=== PATIENT | female | born 1965 | race Two or more races ===

== ENCOUNTER 2022-10-06 23:04 | Inpatient (IN) | payer OTHER ==
[~2022-10-06] VITALS: Ht 165.1 cm; Wt 59.0 kg
--- NOTE | 2022-10-06 23:36 | NUR ---
PTE ALERTA Y ORIENTADA X 3 ESFERAS RECIBIDA EN [facility] POR DOLOR ABDOMINAL.REFIERE TENER DOLOR DESDE HACE 1 SEMANA,REFIERE SER TRAIDA POR COLELITIASIS.
--- NOTE | 2022-10-07 00:18 | NUR ---
PACIENTE ALERTA Y ORIENTADA X3. EN POSICION SEMI-SENTADA EN ELLIE CON BARANDAS ELEVADAS. SE ORIENTA SOBRE TX Y PROCEDIMIENTO A REALIZAR Y REFIRIO ENTENDER. SE REALIZA MUESTRAS DE LABORATORIO BAJO MEDIDAS ASEPTICAS. SE ADMINISTRA MEDICAMENTO ORDENADO POR . SE MANTIENE BAJO OBSERVACION POR CAMBIOS SIGNIFICATIVOS. PACIENTE VINO CON H/L EN [facility] QUE LA TRANSFIRIERON. 0040 DR. JANA PARRISH EVALUO A PACIENTE.
== END 2022-10-09 13:56 | disposition home or self-care (01) | DRG 419 ==
LOC: ER 23:04 → SURH 10-07 00:44
PROVIDERS: Emergency Medicine; Surgery; ADMIT Internal Medicine; ATTEND Internal Medicine
PROC: 0FT44ZZ Resection of Gallbladder, Percutaneous Endoscopic Approach (ICD-10-PCS; principal; 2022-10-08 07:15)
DX: K80.00 Calculus of gallbladder with acute cholecystitis without obstruction (principal); K52.89 Other specified noninfective gastroenteritis and colitis; Z20.822 Contact with and (suspected) exposure to COVID-19